=== PATIENT | female | born 1980 | race Caucasian/White ===

== ENCOUNTER 2017-11-03 16:14 | Emergency (ER) | payer OTHER ==
[~2017-11-03] VITALS: Ht 165.1 cm; Wt 83.0 kg
[~2017-11-03 16:14] MED LIST: BACTRIM DS TAB1 EACH PO; CIPRO500 M1 PO; DILAUDID2 M1 PO; FLUOXETINE HCL10 M2 PO; KETOROLAC TROME10 M1 PO; ORTHO TRI-CYCL1 EAC1 PO; ORTHO TRI-CYCL1 EACH PO; PERCOCET 5-3251 EACH PO; REGLAN10 M1 PO; XANAX0.5 MG PO; ZOFRAN ODT4 M1 SL; ZOFRAN4 M2 PO
[2017-11-03 16:50] LABS: ABSOLUTE BASOPHIL COUNT 0 /CUMM (0.0-0.2); ABSOLUTE EOSINOPHIL COUNT 0.1 /CUMM (0.0-0.7); ABSOLUTE GRANULOCYTE CT 5.2 /CUMM (1.4-6.5); ABSOLUTE LYMPH COUNT 1.9 /CUMM (1.2-3.4); ABSOLUTE MONOCYTE COUNT 0.5 /CUMM (0.10-0.60); BASOPHIL % 0.6 % (0.0-2.0); EOSINOPHIL % 1.5 % (0-5); GRANULOCYTE % 67.2 % (42.2-75.2); HEMATOCRIT 37.3 % (37-47); MEAN CORPUSCULAR HGB 28.5 PG (27.0-31.0); MEAN CORPUSCULAR HGB CONC 33.4 G/DL (33.0-37.0); MEAN CORPUSCULAR VOLUME 85.1 FL (81.0-99.0); MEAN PLATELET VOLUME 7.1 FL (7.4-10.4); PLATELET COUNT 333 /CUMM (130-400); RBC DISTRIBUTION WIDTH 13.8 % (11.5-14.5); RED BLOOD CELL CT 4.38 /CUMM (4.20-5.40); WHITE BLOOD CELL COUNT 7.7 /CUMM (4.8-10.8)
[2017-11-03 20:51] VITALS: BP 128/71
[2017-11-03] MEDS ORDERED: TRI-LO-MARZIA1 EACH PO (21:07)
--- NOTE | 2017-11-03 21:10 | CT SCAN REPORT ---
EXAMINATION: CT ABDOMEN AND PELVIS WITHOUT CONTRAST CLINICAL INFORMATION: Left flank pain COMPARISON: 05/07/2017 TECHNIQUE: Multidetector volumetric imaging was performed from the superior aspect of the liver through the pubic symphysis. Sagittal and coronal reformatted images were obtained on the technologist's workstation. DLP: 410 mGy-cm FINDINGS: LUNG BASES: The visualized lung bases are unremarkable. LIVER, GALLBLADDER, AND BILIARY TREE: The liver is normal in size, shape, and attenuation. No focal hepatic lesion or biliary ductal dilatation is present. The gallbladder is unremarkable with no evidence of radiopaque gallstones, gallbladder wall thickening, or obvious pericholecystic inflammatory changes. PANCREAS: Unremarkable. SPLEEN: Unremarkable. ADRENAL GLANDS: Unremarkable. KIDNEYS AND URETERS: The kidneys are normal in size, shape, and attenuation. No hydronephrosis, hydroureter, or calculi seen. No perinephric stranding. BLADDER: Unremarkable. GASTROINTESTINAL TRACT: The small and large bowel are unremarkable. The appendix is unremarkable. ABDOMINAL WALL: No significant hernia is appreciated. LYMPH NODES: Normal. VASCULAR: Unremarkable. PELVIC VISCERA: Unremarkable. OSSEOUS STRUCTURES: Unremarkable. IMPRESSION: No significant abnormality. No renal or ureteral calculi. No hydronephrosis.
[2017-11-03] MEDS ORDERED: ZOFRAN ODT4 M1 SL (21:36)
[2017-11-03] MEDS ORDERED: KETOROLAC TROME10 M1 PO (21:36)
--- NOTE | 2017-11-03 21:37 | ED GI/GU/ABDOMINAL COMPLAINT ---
History of Present Illness General Chief Complaint: Low Back Pain/Injury Stated Complaint: ?KIDNEY/BACK PAIN Source: patient, old records Exam Limitations: no limitations Vital Signs & Intake/Output Vital Signs & Intake/Output Vital Signs Date Time Temp Pulse Resp B/P B/P Pulse O2 O2 Flow FiO2 Mean Ox Delivery Rate 11/03 2050 99.3 82 18 128/71 95 Room Air 11/03 1622 98.3 99 15 148/80 98 Room Air Room Air Allergies Coded Allergies: No Known Allergies (11/03/17) Reconcile Medications Ketorolac Tromethamine 10 MG TABLET 1 TAB PO Q6P PRN PAIN TORDOL IV HERE RECIVED IV TORDOL HERE Norgestimate-Ethinyl Estradiol (Yrp-Rl-Ndmppb Tablet) [id number] LO TABLET 1 TAB PO DAILY CONTROL (Reported) Ondansetron (Zofran Odt) 4 MG TAB.RAPDIS 1 TAB SL TID PRN NAUSEA Triage Note: PT TO ED FOR C/C OF L SIDED "KIDNEY PAIN" POINTS TO FLANK AREA. HX OF KIDNEY STONES AND HYDRONEPHROSIS. REPORTS ABLE TO URINATE, BUT HASN'T BEEN URINATING A LOT, ?RETENTION. PAIN IS INTERMITTENT. +DIARRHEA. RECENTLY ON CIPRO. PT ALSO REPORTS SUBECTIVE FEVER YESTERDAY OF 101, HX OF SEPSIS IN PAST WELL. Triage Nurses Notes Reviewed? yes LMP (ages 10-50): unknown ? n Is pt currently ? No Onset: Abrupt Duration: week(s): (2), changing over time, continues in ED Timing: recent history Quality/Severity: cramping Severity Numbers: 7 Location: left flank, left upper quadrant Radiation: back Activities at Onset: none Prior Abdominal Problems: similar symptoms Past Sexual History: Unobtainable at this time No Modifying Factors: none Modifying Factors: Worsens With: movement, palpation. HPI: 37-year-old female past medical history of kidney stones, hydronephrosis, sepsis presents for evaluation of pain in her left flank and left upper quadrant reading to the left upper back. Symptoms started a few days ago. She reports associated diarrhea. She states that she was recently treated for a UTI with Cipro which stopped about 5 days ago. The diarrhea started a few days later. Diarrhea is watery she reports multiple episodes last time several hours ago. No blood. No sick contacts recent travel. She denies any frequency urgency. She does report subjective fever at home. She currently is not taking any medicine for her symptoms. She has been seen by urology in the past requiring stents. She had an ultrasound done today to evaluate for kidney stones which was negative. No vomiting but associated nausea. She is eating and drinking. (Javier Aguilar) Past History Travel History Traveled to [place] past 21 day No Medical History Any Pertinent Medical History? see below for history Neurological: NONE EENT: NONE Cardiovascular: NONE Respiratory: NONE Gastrointestinal: NONE Hepatic: NONE Renal: KIDNEY PROBLEMS HYDRONEPHOROSIS KIDNEY STONES Musculoskeletal: NONE Psychiatric: PTSD Endocrine: NONE Blood Disorders: SEPSIS Cancer(s): NONE [employer]OCIATE/Reproductive: PCOS Surgical History Surgical History: , tubal ligation Psychosocial History What is your primary language Serbian Tobacco Use: Never used ETOH Use: denies use Illicit Drug Use: denies illicit drug use Family History Hx Contributory? No (Javier Aguilar) Review of Systems Review of Systems Constitutional: Reports: no symptoms. EENTM: Reports: no symptoms. Respiratory: Reports: no symptoms. Cardiovascular: Reports: no symptoms. GI: Reports: see HPI, abdominal pain, diarrhea. Genitourinary: Reports: no symptoms. Musculoskeletal: Reports: no symptoms. Skin: Reports: no symptoms. Neurological/Psychological: Reports: no symptoms. Hematologic/Endocrine: Reports: no symptoms. Immunologic/Allergic: Reports: no symptoms. All Other Systems: Reviewed and Negative (Javier Aguilar) Physical Exam Physical Exam General Appearance: well developed/nourished, no apparent distress, alert, awake Head: atraumatic, normal appearance Eyes: Bilateral: normal appearance, PERRL, EOMI. Ears, Nose, Throat, Mouth: hearing grossly normal, moist mucous membrane Neck: normal inspection, supple, full range of motion Respiratory: normal breath sounds, chest non-tender, no respiratory distress, lungs clear Cardiovascular: regular rate/rhythm, normal peripheral pulses Peripheral Pulses: 2+ radial (R), 2+ radial (L) Gastrointestinal: normal bowel sounds, soft, no organomegaly, tenderness (left flank left upper quadrant) Back: normal inspection, normal range of motion, no vertebral tenderness, no CVA tenderness there is some mild left-sided lumbar paraspinous muscle tenderness Extremities: normal range of motion Neurologic/Psych: no motor/sensory deficits, awake, alert, oriented x 3, normal gait Skin: intact, normal color, warm/dry Core Measures ACS in differential dx? No Sepsis Present: No Sepsis Focused Exam Completed? No (Alex DAS,Javier) Progress Differential Diagnosis: gastritis, inflamm bowel dis, intrauterine , kidney stone, pancreatitis, peptic ulcer, PUD/GERD, UTI/pyelo Plan of Care: Orders Procedure Date/time Status Add-on Test (ER Only) 11/03 194 Active URINE 11/03 164 Complete URINALYSIS 11/03 163 Complete COMPREHENSIVE METABOLIC PANEL 11/03 163 Complete CBC WITHOUT DIFFERENTIAL 11/03 163 Complete Laboratory Tests 11/03/17 1643: Urinalysis LIGHT H, Urine Color YEL, Urine Clarity CLEAR, Urine pH 5.5, Ur Specific [place] >= 1.030, Urine Protein NEG, Urine Ketones NEG, Urine Nitrite NEG, Urine Bilirubin NEG, Urine Urobilinogen 0.2, Ur Leukocyte Esterase NEG, Ur Microscopic SEDIMENT EXAMINED, Urine WBC 5-10 H, Ur Epithelial Cells MOD H, Urine Hemoglobin MOD H, Urine Glucose NEG, Urine Test NEGATIVE 11/03/17 1640: Anion Gap 11, Estimated GFR > 60, BUN/Creatinine Ratio 15.7, Glucose 121 H, Calcium 9.2, Total Bilirubin 0.4, AST 14, ALT 17, Alkaline Phosphatase 42, Total Protein 7.2, Albumin 4.0, Globulin 3.2, Albumin/Globulin Ratio 1.3, CBC w Diff NO MAN DIFF REQ, RBC 4.38, MCV 85.1, MCH 28.5, MCHC 33.4, RDW 13.8, MPV 7.1 L, Gran % 67.2, Lymphocytes % 24.2, Monocytes % 6.5, Eosinophils % 1.5, Basophils % 0.6, Absolute Granulocytes 5.2, Absolute Lymphocytes 1.9, Absolute Monocytes 0.5 , Absolute Eosinophils 0.1, Absolute Basophils 0 Patient seen and evaluated. She has left flank left upper quadrant and is reading to her left lower back. Vital signs are stable she's afebrile here. Blood work was obtained within normal limits. Patient is medicated with IM Toradol and Zofran ODT. Ultrasound from today is within normal limits. We'll check a CT scan of the abdomen and pelvis for further evaluation. Patient will also be encouraged to give a stool sample. The skin is unsure of any acute findings patient does report improvement after Toradol. She has not had any diarrhea here. No vomiting here. She is able tolerate fluids. Patient was given information to complete an outpatient stool sample for cultures C. difficile over parasites. Follow-up with urology. Continue oral Toradol Zofran as needed. Increase fluids. Discussed return precautions patient agrees the plan Diagnostic Imaging: Viewed by Me: CT Scan. Discussed w/RAD: CT Scan. Radiology Impression: PATIENT: MARSHALL DING PRESENT AGE: 37 PATIENT ACCOUNT NO: [id number] : 79 LOCATION: [facility] ORDERING PHYSICIAN: Javier DAS SERVICE DATE: 11/03/17 EXAM TYPE: CAT - CT ABD & PELVIS W/O IV CONTRAS EXAMINATION: CT ABDOMEN AND PELVIS WITHOUT CONTRAST CLINICAL INFORMATION: Left flank pain COMPARISON: 05/07/2017 TECHNIQUE: Multidetector volumetric imaging was performed from the superior aspect of the liver through the pubic symphysis. Sagittal and coronal reformatted images were obtained on the technologist's workstation. DLP: 410 mGy-cm FINDINGS: LUNG BASES : The visualized lung bases are unremarkable. LIVER, GALLBLADDER, AND BILIARY TREE: The liver is normal in size, shape, and attenuation. No focal hepatic lesion or biliary ductal dilatation is present. The gallbladder is unremarkable with no evidence of radiopaque gallstones, gallbladder wall thickening, or obvious pericholecystic inflammatory changes. PANCREAS: Unremarkable. SPLEEN: Unremarkable. ADRENAL GLANDS: Unremarkable. KIDNEYS AND URETERS: The kidneys are normal in size, shape, and attenuation. No hydronephrosis, hydroureter, or calculi seen. No perinephric stranding. BLADDER: Unremarkable. GASTROINTESTINAL TRACT: The small and large bowel are unremarkable. The appendix is unremarkable. ABDOMINAL WALL: No significant hernia is appreciated. LYMPH NODES: Normal. VASCULAR: Unremarkable. PELVIC VISCERA: Unremarkable. OSSEOUS STRUCTURES: Unremarkable. IMPRESSION: No significant abnormality. No renal or ureteral calculi. No hydronephrosis. DICTATED BY: Brian Grider MD DATE/TIME DICTATED:11/03/172102 PARTS CONSULTANT:TYRONE DATE/TIME TRANSCRIBED:2102 CONFIDENTIAL, DO NOT COPY WITHOUT APPROPRIATE AUTHORIZATION. < Electronically signed in Other Vendor System> SIGNED BY: Brian Grider MD 11/03/172109 Initial ED EKG: none (Javier Aguilar) Departure Departure Disposition: HOME OR SELF CARE Condition: Stable Clinical Impression Primary Impression: Renal colic on left side Referrals: Ale Geronimo APRN (PCP/Family) Juan Quiñonez MD Additional Instructions: Rest and drink plenty of fluids. Tylenol and ibuprofen as needed for pain. Zofran for nausea. Imodium for diarrhea. Complete outpatient stool cultures as soon as possible. Make a follow-up appointment with her primary care doctor and Dr. Quiñonez as soon as possible. Monitor symptoms if you have fever worsening pain or any other concerns return immediately. Departure Forms: Customer Survey General Discharge Information Prescriptions: Current Visit Scripts Ondansetron (Zofran Odt) 1 TAB SL TID PRN NAUSEA #10 TAB Ketorolac Tromethamine 1 TAB PO Q6P PRN PAIN TORDOL IV HERE #20 TAB RECIVED IV TORDOL HERE (Javier Aguilar) PA/WAITER/WAITRESS CABIN CLASS Co-Sign Statement Statement: ED Attending supervision documentation- [] I saw and evaluated the patient. I have also reviewed all the pertinent lab results and diagnostic results. I agree with the findings and the plan of care as documented in the PA's/WAITER/WAITRESS CABIN CLASS's documentation. x[] I have reviewed the ED Record and agree with the PA's/WAITER/WAITRESS CABIN CLASS's documentation. [] Additions or exceptions (if any) to the PAs/WAITER/WAITRESS CABIN CLASS's note and plan are summarized below: [] (Hank JESUS,Jose Rodriguez)
== END 2017-11-03 21:48 ==
LOC: ERH 16:14
PROVIDERS: Emergency Medicine
DX: N23 Unspecified renal colic (principal); R10.9 Unspecified abdominal pain; R19.7 Diarrhea, unspecified
CPT/HCPCS: 74176; 81001; 81025; 96372; J1885; J3101